=== PATIENT | male | born 1990 | race African-American/Black ===

== ENCOUNTER 2019-12-12 13:24 | Inpatient (IN) | payer OTHER ==
--- NOTE | 2019-12-12 14:38 | BHS.RME ---
Substance Use & Tx History - Substance Use History Alcohol Substance amount: 1 pint Vodka, 5 x 24 ounce beer Frequency of use: More than 3 times per week Substance route: Oral Date of Last Use: 12/12/19 Cocaine (Crack) Substance amount: $50 Frequency of use: Less than 3 times per week Substance route: Smoking Date of Last Use: 12/12/19 Cannabis Substance amount: 5 blunts Frequency of use: Daily Substance route: Smoking Date of Last Use: 12/12/19 Physical/Psych/Mental Status - Behavior General Behavior: Decreased activity - Cooperativeness Cooperativeness: Cooperative - Thinking Thought Processes: Tight Thought content: Future oriented - Physical Health Problems Is patient presently having any pain?: No Does patient presently have any injuries (include location): No Does patient currently have a fever: No Is patient : No CIWA Nausea/Vomitin-No Nausea/No Vomiting Muscle Tremors: 1-None Visible, but Ira Anxiety: 3 Agitation: 1-Slight > Activity Paroxysmal Sweats: 2 Orientation: 2-Disoriented Date<2 days Tacttile Disturbances: 0-None Auditory Disturbances: 0-None Visual Disturbances: 1-Very Mild Sensitivity Headache: 2-Mild CIWA-Ar Total Score: 12
[2019-12-12 17:09] VITALS: BMI 25.1
--- NOTE | 2019-12-12 17:21 | HP ---
CIWA Score Nausea/Vomitin-No Nausea/No Vomiting Muscle Tremors: 2 Anxiety: 3 Agitation: 1-Slight > Activity Paroxysmal Sweats: 3 (Increased facial moisture) Orientation: 0-Oriented (WAS RE-ORIENTED EARLIER) Tacttile Disturbances: 0-None Auditory Disturbances: 0-None Visual Disturbances: 0-None Headache: 1-Very Mild CIWA-Ar Total Score: 10 - Admission Criteria [facility] Guidelines: Admission for Medically Managed Detox: Requires at least one of the followin. CIWA greater than 12 2. Seizures within the past 24 hours 3. Delirium tremens within the past 24 hours 4. Hallucinations within the past 24 hours 5. Acute intervention needed for co occurring medical disorder 6. Acute intervention needed for co occurring psychiatric disorder 7. Severe withdrawal that cannot be handled at a lower level of care (continued vomiting, continued diarrhea, abnormal vital signs) requiring intravenous medication and/or fluids 8. Patient presents the following: Acute intervention needed for co-occurring med or psych disorder (Elevated blood pressure, symptoms of dehydration) Admission Criteria Met: Admission criteria met Admitting History and Physical - Smoking History Smoking history: Never smoked [facility] Chief Complaint: Here because I need help to stop my drinking and drug use. Allergies/Adverse Reactions: Allergies Allergy/AdvReac Type Severity Reaction Status Date / Time No Known Allergies Allergy Verified 12/12/19 17:03 History of Present Illness: 28 yo with alcohol withdrawal symptoms seeking detox. Denies seizures, blackouts or overdoses. Denies prior detox or rehabs. Has tried stopping on own but only able to abstain for 4 days. Alcohol use since age 15. Current usage x 4 years. Drinks alcohol 5-6 days/ week. Cocaine use since age 23. Sniffs and smokes 1 gm every other day x 2 years Nicotine uses since age 24. Currently smokes 1 PPD. PMHx: Denies MHHx: Stressed. Denies thoughts of harming self or others. States wants to see a Psych "to talk about stress" SHx: Domiciled. Unemployed. Denies legal issues. Search Terms: Robert Avilez, 1990 Search Date: 12/12/2019 17:27:27 PM The Drug Utilization Report below displays all of the controlled substance prescriptions, if any, that your patient has filled in the last twelve months. The information displayed on this report is compiled from pharmacy submissions to the Department, and accurately reflects the information as submitted by the pharmacies. This report was requested by: Ana Gill | Reference #: [id number] There are no results for the search terms that you entered. Exam Limitations: No Limitations - Ebola screening Have you traveled outside of the country in the last 21 days: No Have you had contact with anyone from an Ebola affected area: No Have you been sick,other than usual withdrawal symptoms: No Do you have a fever: No - Review of Systems Constitutional: Diaphoresis, Weight Stable EENT: reports: No Symptoms Reported Respiratory: reports: No Symptoms reported Cardiac: reports: No Symptoms Reported GI: reports: No Symptoms Reported : reports: No Symptoms Reported Musculoskeletal: reports: No Symptoms Reported Integumentary: reports: No Symptoms Reported Neuro: reports: Headache (Frontal throbbing headache "4" improving) Endocrine: reports: No Symptoms Reported Hematology: reports: No Symptoms Reported Psychiatric: reports: Judgement Intact, Mood/Affect Appropiate, Orientated x3, Anxious Patient History - Patient Medical History Hx Asthma: No Hx Chronic Obstructive Pulmonary Disease (COPD): No Hx Cardiac Disorders: No Hx Hypertension: No Hx Seizures: No Hx Diabetes: No Hx Gastrointestinal Disorders: No Hx Genitourinary Disorders: No Hx Sexually Transmitted Disorders: No Hx Renal Disease (ESRD): No Hx Depression: No Hx Suicide Attempt: No Hx Schizophrenia: No - Patient Surgical History Past Surgical History: No Hx Neurologic Surgery: No Hx Cataract Extraction: No Hx Cardiac Surgery: No Hx Lung Surgery: No Hx Breast Surgery: No Hx Breast Biopsy: No Hx Abdominal Surgery: No Hx Appendectomy: No Hx Cholecystectomy: No Hx Genitourinary Surgery: No Hx Section: No Hx Orthopedic Surgery: No Anesthesia Reaction: No - PPD History Previous Implant?: No Implanted On Prior R Admission?: No PPD to be Administered?: Yes - Reproductive History Patient : No - Smoking Cessation Smoking history: Current every day smoker Have you smoked in the past 12 months: Yes Aproximately how many cigarettes per day: 20 Hx Chewing Tobacco Use: No Initiated information on smoking cessation: Yes 'Breaking Loose' booklet given: 12/12/19 - Substance & Tx. History Hx Alcohol Use: Yes Hx Substance Use: Yes Substance Use Type: Alcohol, Cocaine, Marijuana Hx Substance Use Treatment: No - Substances abused Alcohol Substance route: Oral Frequency: 3-6 times per week Amount used: 1 liter of vodka/ 5 beers Age of first use: 15 Date of last use: 12/12/19 Cocaine Substance route: Smoking Frequency: 3-6 times per week Amount used: 1 gram Age of first use: 22 Date of last use: 12/12/19 [facility] - Vital Signs Vital Signs: Vital Signs - 24 hr 12/12/19 17:03 Temperature 97.8 F Pulse Rate 87 Respiratory 18 Rate Blood Pressure 151/89 - Physical General Appearance: Yes: Nourished, Mild Distress, Sweating (Increased facial moisture), Anxious HEENTM: Yes: EOMI, Hearing grossly Normal, Normocephalic, Normal Voice, DAVID, Pharynx Normal, Other (Thickened, whitish saliva) Respiratory: Yes: Lungs Clear, Normal Breath Sounds, No Respiratory Distress Neck: Yes: No masses,lesions,Nodules, Supple Breast: Yes: Breast Exam Deferred Cardiology: Yes: Regular Rhythm, Regular Rate, S1, S2 Abdominal: Yes: Non Tender, Flat, Soft, Increased Bowel Sounds Genitourinary: Yes: Within Normal Limits Back: Yes: Normal Inspection Musculoskeletal: Yes: full range of Motion, Gait Steady Extremities: Yes: Normal Capillary Refill (Periph pulses +) Neurological: Yes: environmental coordinator II-XII NML intact, Fully Oriented, Alert, Motor Strength 5/5, Normal Mood/Affect Integumentary: Yes: Normal Color, Warm, Moist (Increased facial moisture), Other (Decreased skin turgor) Lymphatic: Yes: Within Normal Limits - Diagnostic (1) Alcohol dependence, uncomplicated Current Visit: Yes Status: Acute (2) Cocaine dependence, uncomplicated Current Visit: Yes Status: Chronic (3) Nicotine dependence, unspecified, uncomplicated Current Visit: Yes Status: Chronic Qualifiers: Nicotine product type: cigarettes Qualified Code(s): F17.210 - Nicotine dependence, cigarettes, uncomplicated (4) Dehydration symptoms Current Visit: Yes Status: Acute (5) Elevated blood pressure reading Current Visit: Yes Status: Acute Cleared for Admission [facility] - [facility]ox or Rehab [facility] Level of Care: Medically Managed Detox Regimen/Protocol: Librium Claeared for Rehab Admission: No Breathalyzer - Breathalyzer Breathalyzer: 0 Urine Drug Screen - Test Device Lot number: [id number] Expiration date: 09/13/21 - Control Is test valid?: Yes - Results Drug screen NEGATIVE: No Urine drug screen results: ESTEVAN-Cocaine Inpatient Rehab Admission - Rehab Decision to Admit Inpatient rehab admission?: No
[2019-12-12] MEDS ORDERED: chlordiazePOXIDE HCL 10 MG CAPSULE PO PRN (17:44)
[2019-12-12] MEDS ORDERED: MAGNESIUM CITRATE 300 ML BOTTLE PO PRN (17:44)
[2019-12-12] MEDS ORDERED: BISMUTH SUBSALICYLATE 524 MG/30 ML UD PO PRN (17:44)
[2019-12-12] MEDS ORDERED: MAGNESIUM HYDROX 2400MG/30ML ORAL SUSPENSION 30 ML CUP PO PRN (17:44)
[2019-12-12] MEDS ORDERED: MAG HYDROX/AL HYDROX/SIMETH 30 ML UNIT-DOSE CUP PO PRN (17:44)
[2019-12-12] MEDS ORDERED: IBUPROFEN 400 MG TABLET (FP) PO PRN (17:44)
[2019-12-12] MEDS ORDERED: ACETAMINOPHEN 325 MG TABLET (FP) PO PRN ×2 (17:44)
[2019-12-12] MEDS ORDERED: MENTHOL/PHENOL 1 EACH UD MM PRN (17:44)
[2019-12-12] MEDS: THIAMINE HCL 100 MG TABLET (FP) PO SCH (22:12)
[2019-12-12] MEDS: MELATONIN 5 MG TABLETS PO PRN (22:12)
[2019-12-12] MEDS: chlordiazePOXIDE HCL 25 MG CAPSULE PO SCH (22:12)
[2019-12-13] MEDS: chlordiazePOXIDE HCL 25 MG CAPSULE PO SCH ×3 (05:33→22:36)
[2019-12-13] MEDS: NICOTINE POLACRILEX 2 MG GUM BUC PRN ×3 (05:34→22:38)
[2019-12-13 09:42] LABS: HEMATOCRIT 44.1 % (35.4-49); HEMOGLOBIN 14.6 GM/dL (11.7-16.9); MCH 28.6 pg (25.7-33.7); MCHC 33.1 g/dl (32.0-35.9); MEAN CELL VOLUME 86.4 fl (80-96); MEAN PLT VOLUME 10.1 fl (7.5-11.1); PLATELET COUNT 196 K/MM3 (134-434); RBC 5.11 M/mm3 (4.00-5.60); RDW 13.6 % (11.9-15.9); WHITE BLOOD COUNT 3.8 K/mm3 (4.0-10.0)
[2019-12-13] MEDS: NICOTINE 21 MG/24 HOURS TOPICAL PATCH TD SCH (10:17)
[2019-12-13] MEDS: PRENATAL VITAMINS W/ FOLIC ACID TABLET (FP) PO SCH (10:17)
[2019-12-13 10:25] LABS: ALBUMIN 3.7 g/dl (3.4-5.0); BILIRUBIN,TOTAL 0.1 mg/dL (0.2-1); BLOOD UREA NITROGEN 17.5 mg/dL (7-18); CREATININE 1.1 mg/dL (0.55-1.3); POTASSIUM 3.9 mmol/L (3.5-5.1); TOT PROT 6.4 g/dl (6.4-8.2)
--- NOTE | 2019-12-13 13:12 | EKG ---
Test Reason : Blood Pressure : / mmHG Vent. Rate : 059 BPM Atrial Rate : 059 BPM P-R Int : 134 ms QRS Dur : 094 ms QT Int : 418 ms P-R-T Axes : 012 063 068 degrees QTc Int : 413 ms SINUS BRADYCARDIA NONSPECIFIC T WAVE ABNORMALITY NO PREVIOUS ECGS AVAILABLE Confirmed by FAROOQ MCCORMACK MD ([id number]) on 12/13/2019 1:12:24 PM Referred By: VIKTORIA Confirmed By:FAROOQ MCCORMACK MD
--- NOTE | 2019-12-13 16:05 | CONSULT ---
[facility] Psychiatric Consult - Data Date of interview: 12/13/19 Admission source: [facility] Identifying data: First visit to [facility] and admission to [address] [place] [address] for this 28 y/o AA male self-referred for detoxification treatment. PEE issues : alcohol, cannabis cocaine/crack, nicotine. Patient is single, no dependents, domiciled, unemployed and supported on [facility] benefits. Substance Abuse History: Discussed with the patient. Details in current [facility] report as follows : Smoking history: Current every day smoker. Have you smoked in the past 12 months: Yes. Aproximately how many cigarettes per day: 20. Hx Chewing Tobacco Use: No. Initiated information on smoking cessation: Yes. ' Breaking Loose' booklet given: 12/12/19. - Substance & Tx. History. Hx Alcohol Use: Yes. Hx Substance Use: Yes. Substance Use Type: Alcohol, Cocaine , Marijuana. Hx Substance Use Treatment: No. - Substances abused. Alcohol. Substance route: Oral. Frequency: 3-6 times per week. Amount used: 1 liter of vodka/ 5 beers. Age of first use: 15. Date of last use: 12/12/19. Cocaine. Substance route: Smoking. Frequency: 3-6 times per week. Amount used: 1 gram. Age of first use: 22. Date of last use: 12/12/19 Medical History: Patient endorses good general health. Psychiatric History: Patient denies history of psychiatric hospitalizations, current OPD care (former patient at [facility]) or suicide attempts. Physical/Sexual Abuse/Trauma History: Patient denies. Additional Comment: Urine drug screen results: ESTEVAN-Cocaine. Noted. Mental Status Exam - Mental Status Exam Alert and Oriented to: Time, Place, Person Cognitive Function: Good Patient Appearance: Well Groomed Mood: Withdrawn, Hopeful Affect: Appropriate, Normal Range Patient Behavior: Fatigued, Appropriate, Cooperative Speech Pattern: Clear, Appropriate Voice Loudness: Normal Thought Process: Intact, Goal Oriented Thought Disorder: Not Present Hallucinations: Denies Suicidal Ideation: Denies Homicidal Ideation: Denies Insight/Judgement: Poor Sleep: Fair Gait/Station: Normal Psychiatric Findings - Problem List ([place] 1, 2,3) (1) Alcohol dependence, uncomplicated Current Visit: Yes Status: Chronic (2) Cocaine dependence, uncomplicated Current Visit: Yes Status: Chronic (3) Nicotine dependence, unspecified, uncomplicated Current Visit: Yes Status: Chronic Qualifiers: Nicotine product type: cigarettes Qualified Code(s): F17.210 - Nicotine dependence, cigarettes, uncomplicated - Initial Treatment Plan Initial Treatment Plan: Psychoeducation. Sleep hygiene. Detoxification. Support. AA meetings. Insomnia is addressed with melatonin at bedtime. Observation.
--- NOTE | 2019-12-13 17:47 | PN ---
S CIWA - CIWA Score Nausea/Vomitin-No Nausea/No Vomiting Muscle Tremors: 3 Anxiety: 3 Agitation: 2 Paroxysmal Sweats: No Perspiration Orientation: 0-Oriented Tacttile Disturbances: 1-Very Mild Itch/Numbness Auditory Disturbances: 0-None Visual Disturbances: 2-Mild Sensitivity Headache: 0-None Present CIWA-Ar Total Score: 11 BHS Progress Note (SOAP) Subjective: Anxious, Tremors, Fatigue. Objective: PATIENT A & O X 3, OBSERVED AMBULATING ON DETOX UNIT UNASSISTED. IN NO ACUTE DISTRESS. 12/13/19 17:46 Vital Signs Temperature 98.1 F 12/13/19 11:24 Pulse Rate 55 L 12/13/19 11:24 Respiratory Rate 16 12/13/19 11:24 Blood Pressure 135/75 12/13/19 11:24 O2 Sat by Pulse Oximetry (%) Laboratory Tests 12/13/19 12/13/19 12/13/19 07:20 07:20 07:20 WBC 3.8 L RBC 5.11 Hgb 14.6 Hct 44.1 MCV 86.4 MCH 28.6 MCHC 33.1 RDW 13.6 Plt Count 196 D MPV 10.1 Sodium 144 Potassium 3.9 Chloride 112 H Carbon Dioxide 28 Anion Gap 4 L BUN 17.5 Creatinine 1.1 Est GFR (CKD-EPI)AfAm 104.59 Est GFR (CKD-EPI)NonAf 90.24 Random Glucose 113 H Calcium 9.0 Total Bilirubin 0.1 L AST 19 ALT 32 Alkaline Phosphatase 86 Total Protein 6.4 Albumin 3.7 RPR Titer Nonreactive LABS NOTED. Assessment: 12/13/19 17:47 WITHDRAWAL SYMPTOMS. Plan: CONTINUE DETOX. INCREASE DAILY ORAL WATER INTAKE.
[2019-12-13] MEDS: MELATONIN 5 MG TABLETS PO PRN (22:36)
[2019-12-13] MEDS: THIAMINE HCL 100 MG TABLET (FP) PO SCH (22:36)
[2019-12-14] MEDS: chlordiazePOXIDE 5 MG CAPSULE PO SCH ×3 (05:41→21:45)
[2019-12-14] MEDS: NICOTINE 21 MG/24 HOURS TOPICAL PATCH TD SCH (12:50)
[2019-12-14] MEDS: PRENATAL VITAMINS W/ FOLIC ACID TABLET (FP) PO SCH (12:50)
[2019-12-14] MEDS ORDERED: cloNIDine HCL 0.1 MG TABLET PO PRN (15:26)
--- NOTE | 2019-12-14 15:26 | PN ---
S CIWA - CIWA Score Nausea/Vomitin-No Nausea/No Vomiting Muscle Tremors: 2 Anxiety: 2 Agitation: 2 Paroxysmal Sweats: 2 Orientation: 0-Oriented Tacttile Disturbances: 0-None Auditory Disturbances: 0-None Visual Disturbances: 0-None Headache: 0-None Present CIWA-Ar Total Score: 8 BHS Progress Note (SOAP) Subjective: Feels ok Objective: 12/14/19 15:24 Last Vital Signs Temp Pulse Resp BP Pulse Ox 96.9 F L 60 16 152/78 12/14/19 12:41 12/14/19 12:41 12/14/19 12:41 12/14/19 12:41 Elevated b/p: denies htn, not on med Laboratory Tests 12/13/19 12/13/19 12/13/19 07:20 07:20 07:20 WBC 3.8 L RBC 5.11 Hgb 14.6 Hct 44.1 MCV 86.4 MCH 28.6 MCHC 33.1 RDW 13.6 Plt Count 196 D MPV 10.1 Sodium 144 Potassium 3.9 Chloride 112 H Carbon Dioxide 28 Anion Gap 4 L BUN 17.5 Creatinine 1.1 Est GFR (CKD-EPI)AfAm 104.59 Est GFR (CKD-EPI)NonAf 90.24 Random Glucose 113 H Calcium 9.0 Total Bilirubin 0.1 L AST 19 ALT 32 Alkaline Phosphatase 86 Total Protein 6.4 Albumin 3.7 RPR Titer Nonreactive Labs reviewed 12/14/19 15:27 Assessment: 12/14/19 15:25 Withdrawal sxs Noted with elevated b/p Plan: Continue detox Encouraged PO water intake Elevated b/p: denies htn, most likely r/t withdrawal, start clonidine prn, monitor b/p
[2019-12-14] MEDS: NICOTINE POLACRILEX 2 MG GUM BUC PRN (15:27)
[2019-12-14] MEDS: MELATONIN 5 MG TABLETS PO PRN (21:45)
[2019-12-14] MEDS: THIAMINE HCL 100 MG TABLET (FP) PO SCH (21:45)
[2019-12-15] MEDS ORDERED: chlordiazePOXIDE HCL 10 MG CAPSULE PO PRN
[2019-12-15] MEDS ORDERED: chlordiazePOXIDE HCL 10 MG CAPSULE PO SCH (05:00)
[2019-12-15] MEDS: NICOTINE POLACRILEX 2 MG GUM BUC PRN (06:03)
--- NOTE | 2019-12-15 09:40 | DS ---
[facility] Detox Discharge Summary Admission Date: 12/12/19 Discharge Date: 12/15/19 - History Present History: Alcohol Dependence, Cocaine Dependence - Physical Exam Results Vital Signs: Vital Signs Temperature 97.7 F 12/15/19 05:56 Pulse Rate 60 12/15/19 05:56 Respiratory Rate 18 12/15/19 05:56 Blood Pressure 113/69 12/15/19 05:56 O2 Sat by Pulse Oximetry (%) Pertinent Admission Physical Exam Findings: Vital Signs Temperature 97.7 F 12/15/19 05:56 Pulse Rate 60 12/15/19 05:56 Respiratory Rate 18 12/15/19 05:56 Blood Pressure 113/69 12/15/19 05:56 O2 Sat by Pulse Oximetry (%) Laboratory Tests 12/13/19 12/13/19 12/13/19 07:20 07:20 07:20 WBC 3.8 L RBC 5.11 Hgb 14.6 Hct 44.1 MCV 86.4 MCH 28.6 MCHC 33.1 RDW 13.6 Plt Count 196 D MPV 10.1 Sodium 144 Potassium 3.9 Chloride 112 H Carbon Dioxide 28 Anion Gap 4 L BUN 17.5 Creatinine 1.1 Est GFR (CKD-EPI)AfAm 104.59 Est GFR (CKD-EPI)NonAf 90.24 Random Glucose 113 H Calcium 9.0 Total Bilirubin 0.1 L AST 19 ALT 32 Alkaline Phosphatase 86 Total Protein 6.4 Albumin 3.7 RPR Titer Nonreactive aaox3 ambulation no acute distress lungs cta - Treatment Hospital Course: Detox Protocol Followed, Detoxed Safely, Responded well, Discharged Condition Good, Rehab Referral Accepted - Medication Discharge Medications: Ambulatory Orders NK [No Known Home Medication] 10/05/18 - Diagnosis (1) Elevated blood pressure reading Current Visit: Yes Status: Acute (2) Alcohol dependence, uncomplicated Current Visit: Yes Status: Chronic (3) Cocaine dependence, uncomplicated Current Visit: Yes Status: Chronic - AMA Did Patient Leave Against Medical Advice: No
[2019-12-15 11:32] VITALS: BP 133/78; PULSE 61; TEMP 96.9
[2019-12-16] MEDS ORDERED: chlordiazePOXIDE HCL 10 MG CAPSULE PO ONE (05:00)
== END 2019-12-15 10:05 | disposition home or self-care (01) | DRG 897 ==
LOC: YASAS 13:24 → Y6N 17:40
PROVIDERS: ADMIT Allergy & Immunology; ATTEND Allergy & Immunology
PROC: HZ2ZZZZ Detoxification Services for Substance Abuse Treatment (ICD-10-PCS; principal; 2019-12-12)
DX: F10.230 Alcohol dependence with withdrawal, uncomplicated (principal); F14.20 Cocaine dependence, uncomplicated; F12.20 Cannabis dependence, uncomplicated; F17.210 Nicotine dependence, cigarettes, uncomplicated; E86.0 Dehydration; R03.0 Elevated blood-pressure reading, without diagnosis of hypertension
CPT/HCPCS: 36415; 80053; 85027; 86593; 93005; 93010

== ENCOUNTER 2023-03-28 12:16 | Inpatient (IN) | payer OTHER ==
[2023-03-28 13:23] VITALS: BMI 23.3
[2023-03-28] MEDS ORDERED: IBUPROFEN 600 MG TABLET (FP) PO PRN (14:44)
[2023-03-28] MEDS ORDERED: AMMONIUM LACTATE 12% LOTION 225 GM BOTTLE TP PRN (14:44)
[2023-03-28] MEDS ORDERED: BENZOCAINE/MENTHOL (CHLORASEPTIC ) LOZENGE MM PRN (14:44)
[2023-03-28] MEDS ORDERED: LOPERAMIDE HCL 2 MG CAPSULE PO PRN (14:44)
[2023-03-28] MEDS ORDERED: MAG HYDROX/AL HYDROX/SIMETH 30 ML UNIT-DOSE CUP PO PRN (14:44)
[2023-03-28] MEDS ORDERED: IBUPROFEN 400 MG TABLET (FP) PO PRN (14:44)
[2023-03-28] MEDS ORDERED: BENZONATATE 200 MG CAPSULE PO PRN (14:44)
[2023-03-28] MEDS ORDERED: NICOTINE 10 MG CARTRIDGE (INHALER) IH PRN (14:44)
[2023-03-28] MEDS ORDERED: NICOTINE POLACRILEX 2 MG GUM BUC PRN (14:44)
[2023-03-28] MEDS ORDERED: guaiFENesin 600 MG TABLET.ER (FP) PO PRN (14:44)
[2023-03-28] MEDS ORDERED: MAGNESIUM HYDROX 2400MG/30ML ORAL SUSPENSION 30 ML CUP PO PRN (14:44)
[2023-03-28] MEDS ORDERED: P-EPHED 60MG/TRIPROLIDI 2.5MG TABLET PO PRN (14:44)
[2023-03-28] MEDS ORDERED: COLLOIDAL OATMEAL 1 BAR EACH TP PRN (14:44)
[2023-03-28] MEDS ORDERED: hydrOXYzine PAMOATE 25 MG CAPSULE (FP) PO PRN (14:44)
[2023-03-28] MEDS ORDERED: ACETAMINOPHEN 325 MG TABLET (FP) PO PRN (14:44)
[2023-03-28] MEDS ORDERED: POLYETHYLENE GLYCOL (HEALTHYLAX) 3350 17 GM PACKET PO PRN (14:44)
[2023-03-28] MEDS: THIAMINE HCL 100 MG TABLET (FP) PO SCH (21:37)
[2023-03-28] MEDS: MELATONIN 5 MG TABLETS PO PRN (21:37)
[2023-03-28 23:14] LABS: URINE APPEARANCE CLEAR; URINE BILIRUBIN NEGATIVE (NEGATIVE); URINE COLOR DK YELLOW; URINE GLUCOSE (UA) NEGATIVE (NEGATIVE); URINE KETONE 1+ (NEGATIVE); URINE LEUK ESTERASE NEGATIVE (NEGATIVE); URINE NITRITE NEGATIVE (NEGATIVE); URINE PROTEIN TRACE (NEGATIVE)
[2023-03-29] MEDS: PRENATAL VITAMINS W/ FOLIC ACID TABLET (FP) PO SCH (09:52)
[2023-03-29] MEDS ORDERED: PNEUMOC 20-VAL CONJ-DIP CRM/PF 0.5 ML SYRINGE IM ONE (12:00)
[2023-03-29 12:10] LABS: HEMATOCRIT 42.9 % (35.4-49); HEMOGLOBIN 13.9 GM/dL (11.7-16.9); MCH 27.9 pg (25.7-33.7); MCHC 32.4 g/dl (32.0-35.9); MEAN CELL VOLUME 86.1 fl (80-96); MEAN PLT VOLUME 10.4 fl (7.5-11.1); PLATELET COUNT 225 10^3/uL (134-434); RBC 4.98 M/mm3 (4.00-5.60); RDW 14.2 % (11.9-15.9); WHITE BLOOD COUNT 5.3 K/mm3 (4.0-10.0)
[2023-03-29 12:11] LABS: POTASSIUM 4.2 mmol/L (3.5-5.1)
[2023-03-29 12:16] LABS: ALBUMIN 3.6 g/dl (3.4-5.0); BLOOD UREA NITROGEN 12.4 mg/dL (7-18); CALCIUM 9.1 mg/dL (8.5-10.1)
[2023-03-29 12:21] LABS: BILIRUBIN,TOTAL 0.7 mg/dL (0.2-1); TOT PROT 6.1 g/dl (6.4-8.2)
[2023-03-29 13:15] LABS: SYPHILIS W/ RPR CONF REACTIVE (NONREACTIVE)
[2023-03-29] MEDS: THIAMINE HCL 100 MG TABLET (FP) PO SCH (21:57)
[2023-03-29] MEDS: MELATONIN 5 MG TABLETS PO PRN (21:57)
[2023-03-30 06:44] VITALS: RESP 18
[2023-03-30] MEDS ORDERED: PENICILLIN G BENZATHINE 2,400,000 UNIT/4 ML PFS IM SCH (10:00)
[2023-03-30] MEDS: PRENATAL VITAMINS W/ FOLIC ACID TABLET (FP) PO SCH (10:36)
[2023-03-30] MEDS: MELATONIN 5 MG TABLETS PO PRN (21:49)
[2023-03-30] MEDS: THIAMINE HCL 100 MG TABLET (FP) PO SCH (21:49)
[2023-03-31 06:41] VITALS: BP 127/87; PULSE 71; TEMP 98
[2023-03-31] MEDS: PRENATAL VITAMINS W/ FOLIC ACID TABLET (FP) PO SCH (09:22)
== END 2023-03-31 19:52 | disposition home or self-care (01) | DRG 895 ==
LOC: YASAS 12:16 → Y3E 15:34
PROVIDERS: ADMIT Allergy & Immunology; ATTEND Surgery
PROC: HZ42ZZZ Group Counseling for Substance Abuse Treatment, Cognitive-Behavioral (ICD-10-PCS; principal; 2023-03-28)
DX: F10.20 Alcohol dependence, uncomplicated (principal); F14.20 Cocaine dependence, uncomplicated; F17.210 Nicotine dependence, cigarettes, uncomplicated; R03.0 Elevated blood-pressure reading, without diagnosis of hypertension; Z86.19 Personal history of other infectious and parasitic diseases; Z28.310 Unvaccinated for COVID-19; Z28.9 Immunization not carried out for unspecified reason
CPT/HCPCS: 36415; 80053; 81003; 85027; 86593; 86780; 86803; 87635; 87811; 90677

== ENCOUNTER 2024-10-02 17:39 | Inpatient (IN) | payer OTHER ==
[2024-10-02 18:14] VITALS: BMI 22.1
[2024-10-02] MEDS ORDERED: ACETAMINOPHEN 325 MG TABLET (FP) PO PRN (18:36)
[2024-10-02] MEDS ORDERED: guaiFENesin 600 MG TABLET.ER (FP) PO PRN (18:36)
[2024-10-02] MEDS ORDERED: IBUPROFEN 600 MG TABLET (FP) PO PRN (18:36)
[2024-10-02] MEDS ORDERED: BENZONATATE 200 MG CAPSULE PO PRN (18:36)
[2024-10-02] MEDS ORDERED: DICYCLOMINE HCL 10 MG CAPSULE PO PRN (18:36)
[2024-10-02] MEDS ORDERED: NALOXONE (NARCAN) HCL 4 MG/0.1 ML SPRAY NS PRN (18:36)
[2024-10-02] MEDS ORDERED: POLYETHYLENE GLYCOL (HEALTHYLAX) 3350 17 GM PACKET PO PRN (18:36)
[2024-10-02] MEDS ORDERED: BISMUTH SUBSALICYLATE 524 MG/30 ML PO PRN (18:36)
[2024-10-02] MEDS ORDERED: hydrOXYzine PAMOATE 25 MG CAPSULE (FP) PO PRN (18:36)
[2024-10-02] MEDS ORDERED: METHOCARBAMOL 500 MG TABLET PO PRN (18:36)
[2024-10-02] MEDS ORDERED: MAGNESIUM HYDROX 2400MG/30ML ORAL SUSPENSION 30 ML CUP PO PRN (18:36)
[2024-10-02] MEDS ORDERED: MAG HYDROX/AL HYDROX/SIMETH 30 ML UNIT-DOSE CUP PO PRN (18:36)
[2024-10-02] MEDS ORDERED: IBUPROFEN 400 MG TABLET (FP) PO PRN (18:36)
[2024-10-02] MEDS ORDERED: BENZOCAINE/MENTHOL (CHLORASEPTIC ) LOZENGE MM PRN (18:36)
[2024-10-02] MEDS ORDERED: LOPERAMIDE HCL 2 MG CAPSULE PO PRN (18:36)
[2024-10-02] MEDS ORDERED: ONDANSETRON *ODT* 4 MG TABLET SL PRN (18:36)
[2024-10-02] MEDS ORDERED: NICOTINE POLACRILEX 2 MG GUM BUC PRN (18:36)
[2024-10-02] MEDS: THIAMINE 100 MG TABLET PO SCH (22:04)
[2024-10-02] MEDS: MELATONIN 5 MG TABLETS PO SCH (22:04)
[2024-10-03] MEDS: PRENATAL VITAMINS W/ FOLIC ACID TABLET (FP) PO SCH (10:07)
[2024-10-03] MEDS: NICOTINE 14 MG/24 HOURS TOPICAL PATCH TD SCH (10:08)
[2024-10-03 12:42] LABS: HEMATOCRIT 44.2 % (35.4-49); HEMOGLOBIN 14.6 GM/dL (11.7-16.9); MCH 28.5 pg (25.7-33.7); MCHC 33.1 g/dl (32.0-35.9); MEAN CELL VOLUME 86.1 fl (80-96); MEAN PLT VOLUME 9.3 fl (7.5-11.1); PLATELET COUNT 298 10^3/uL (134-434); RBC 5.14 M/mm3 (4.00-5.60); RDW 14.2 % (11.9-15.9)
[2024-10-03 12:48] LABS: CHLORIDE 105 mmol/L (98-107); POTASSIUM 4.1 mmol/L (3.5-5.1); SODIUM 141 mmol/L (136-145)
[2024-10-03 12:50] LABS: ANION GAP 5 mmol/L (4-13); CALCIUM 9.1 mg/dL (8.5-10.1); CO2 31 mmol/L (21-32); GLUCOSE,RANDOM 98 mg/dL (74-106)
[2024-10-03 12:51] LABS: ALBUMIN 3.6 g/dl (3.4-5.0); BLOOD UREA NITROGEN 15.2 mg/dL (7-18)
[2024-10-03 12:53] LABS: SGPT/ALT 24 U/L (13-61)
[2024-10-03 12:54] LABS: SGOT/AST 21 U/L (15-37)
[2024-10-03 12:55] LABS: BILIRUBIN,TOTAL 0.2 mg/dL (0.2-1); TOT PROT 7.2 g/dl (6.4-8.2)
[2024-10-03 12:56] LABS: ALK PHOS 86 U/L (45-117)
[2024-10-04 06:22] VITALS: RESP 18
[2024-10-04 09:47] VITALS: BP 130/86; PULSE 65; TEMP 98
[2024-10-04] MEDS: NALOXONE (NYS OPIOID OVERDOSE PROGRAM) 4 MG/0.1 ML SPRAY NS SCH (09:55)
== END 2024-10-04 10:17 | disposition home or self-care (01) | DRG 774 ==
LOC: YASAS 17:39 → Y3N 21:29
PROVIDERS: ADMIT Allergy & Immunology; ATTEND Surgery
PROC: HZ2ZZZZ Detoxification Services for Substance Abuse Treatment (ICD-10-PCS; principal; 2024-10-02)
DX: F10.20 Alcohol dependence, uncomplicated (principal); F14.20 Cocaine dependence, uncomplicated; F17.210 Nicotine dependence, cigarettes, uncomplicated
CPT/HCPCS: 36415; 80053; 80307; 85027; 86593; 86780; 93005; 93010